=== PATIENT | female | born 1975 | race Two or more races ===

== ENCOUNTER 2022-06-30 14:25 | Emergency (ER) | payer OTHER ==
[~2022-06-30] VITALS: Ht 160 cm; Wt 90.7 kg
[~2022-06-30 14:25] MED LIST: AVAPRO150 MG PO
== END 2022-06-30 17:50 | disposition home or self-care (01) ==
LOC: ER 14:25
DX: R53.81 Other malaise (principal); G44.89 Other headache syndrome; M75.51 Bursitis of right shoulder

== ENCOUNTER → 2022-09-11 | Emergency (ER) | payer OTHER ==
[~2022-09-11] VITALS: Ht 154.9 cm; Wt 95.3 kg
== END | disposition left against medical advice (07) ==
LOC: ER 22:23
DX: Z53.21 Procedure and treatment not carried out due to patient leaving prior to being seen by health care provider (principal)